=== PATIENT | female | born 1995 | race Caucasian/White ===

== ENCOUNTER 2020-01-14 06:10 | Day surgery (SDC) | payer BC ==
[2020-01-13 08:36] VITALS: BMI 43.2
[2020-01-14] MEDS ORDERED: IBUPROFEN 600 MG TABLET (FP) PO PRN (07:07)
--- NOTE | 2020-01-14 07:07 | HP ---
History & Physical Update - History History: No Change - Physical Physical: No Change - Assessment Assessment: No Change - Plan Plan: No Change (No change in HP)
[2020-01-14] MEDS ORDERED: LACTATED RINGERS SOLUTION 1,000 ML IV SCH (07:15)
[2020-01-14] MEDS ORDERED: ROCURONIUM BROMIDE 50 MG/5 ML SYRINGE ONE ×2 (07:33→08:33)
[2020-01-14] MEDS ORDERED: PROPOFOL 20 ML ONE ×2 (07:33→07:37)
[2020-01-14] MEDS ORDERED: MIDAZOLAM HCL 2 MG/2 ML SINGLE DOSE VIAL ONE (07:33)
[2020-01-14] MEDS ORDERED: LIDOCAINE HCL/PF 2% SDV 5ML VIAL ONE (07:33)
[2020-01-14] MEDS ORDERED: DEXAMETHASONE SOD PHOSPHATE 4 MG/1 ML VIAL ONE (08:19)
[2020-01-14] MEDS ORDERED: NEOSTIGMINE METHYLSULFATE 0.5 MG/ML - 10 ML MDV ONE (08:59)
[2020-01-14] MEDS ORDERED: GLYCOPYRROLATE 0.2 MG/1 ML VIAL ONE (08:59)
[2020-01-14] MEDS ORDERED: BUPIVACAINE HCL 0.5% 250 MG/50 ML VIAL IV ONE (09:15)
--- NOTE | 2020-01-14 09:35 | OP ---
Operative Note - Note: Operative Date: 01/14/20 Pre-Operative Diagnosis: right ovarian cyst Operation: laparoscopic right ovarin cystectomy, left paraovarian cyst aspiration and partial cystectomy Surgeon: Mitzy Flynn Equipment Maint Tech: Kaylen Lynne Anesthesiologist/MATCHER LEATHER PARTS: Perlita Anand Anesthesia: General Specimens Removed: right and left ovarian cyst and left ovarian cystic fluid Estimated Blood Loss (mls): 20 Drains, Volume Out (mls): 300 (garcia) Fluid Volume Replaced (mls): 1,300
[2020-01-14] MEDS ORDERED: IBUPROFEN 800 MG/8 ML IJ IVPB PRN (09:39)
[2020-01-14] MEDS ORDERED: oxyCODONE HCL 5 MG TABLET PO PRN (09:39)
[2020-01-14 12:59] VITALS: BP 124/79; PULSE 103; TEMP 98.5
--- NOTE | 2020-01-14 13:29 | SURG ---
Surgery Central Office Operator Note Central Office Operator: Kaylen Lynne PA-C Date of Service: 01/14/20 Diagnosis: right ovarian cyst Procedure: laparoscopic right ovarin cystectomy, left paraovarian cyst aspiration and partial cystectomy I was present for the entirety of the operative procedure. For further detail, please refer to operative report. Visit type - Case Type Case Type: Scheduled - Emergency Emergency Visit: No - New patient This patient is new to me today: Yes Date on this admission: 01/14/20
--- NOTE | 2020-01-14 17:15 | OP ---
DATE OF OPERATION: 01/14/2020 PREOPERATIVE DIAGNOSIS: Ovarian cyst, pelvic pain. OPERATION: Laparoscopic paraovarian right cystectomy and left ovarian cystectomy. POSTOPERATIVE DIAGNOSIS: Right paraovarian cyst and left ovarian cyst. SURGEON: David Pete MD. CITY MANAGER: EVE Adams. ANESTHESIA: General. ANESTHESIOLOGIST: Perlita Anand MD. ESTIMATED BLOOD LOSS: 20 mL. PROCEDURE: Patient was taken to the operating room, placed in supine position. Prepped and draped in usual sterile fashion. A timeout was performed in accordance with the hospital regulation. Gonzales catheter was inserted into the bladder. Attention was then drawn to the umbilicus, where a 5-mm umbilical incision was made. Veress needle was inserted into the cavity. Approximately 3-4 L CO2 was insufflated. Veress needle was then removed, and a 5-mm trocar was then inserted. Laparoscopic camera attached. Visualization revealed a large 6-cm right paraovarian cyst located underneath the fallopian tube and also a left pelvic 3-cm left ovarian cyst on the left ovary. Tubes were noted to be normal, and uterus was normal. The 2nd trocar on the left was placed in the lower abdomen after incision was made. Trocar was inserted under direct visualization. A 3rd trocar was placed on the right side in the lower abdomen after scalpel had been using. Trocar was inserted under direct visualization. The tube paraovarian cyst on the right was grasped and the serosa was then entered, and a paraovarian cystectomy was performed. The wall of the cyst was then removed. Cautery and cutting of the cyst was done. Hemostasis achieved using coagulation. Attention was then drawn to the left ovary, where a 3-cm ovarian cyst was noted. The needle was then used to puncture the cyst and cystic fluid removed was then submitted to cytology. The serosa was then entered, and an ovarian cystectomy was then done using blunt technique. The cyst wall was grasped and removed and submitted to pathology. Cauterization of the ovary was then done. Hemostasis was achieved. After irrigation and suction was done, hemostasis was achieved. The instruments were then removed. CO2 was then removed from the abdomen. Incisions were then closed using 3-0 Vicryl suture. Wound washed and dressed. Patient tolerated procedure well. Estimated blood loss was 20 mL. DAVID PETE M.D. [id number] [place]
--- NOTE | 2020-01-15 18:07 | PATH ---
Cytology Non-Gynecological Report Patient Name: MADHAVI ASCENCIO [facility]. Rec. #: [id number] /Age/Gender: 1995 (Age: 24) / F Account: [id number] Location: [facility] SURGICAL Taken: 01/14/2020 Received: 01/14/2020 Reported: 01/15/2020 Physicians: Mitzy Flynn M.D. Specimen(s) Received LEFT OVARIAN CYSTIC FLUID Clinical History Left ovarian cyst Final Diagnosis LEFT OVARIAN CYSTIC FLUID FOR CYTOLOGY: SATISFACTORY FOR EVALUATION. NEGATIVE FOR MALIGNANCY. BENIGN CYSTIC CONTENTS. SEE CONCURRENT PATHOLOGY REPORT [id number]. Electronically Signed Dorcas Pisano M.D. Gross Description Approximately 5cc of bloody fluid received fresh. One cytospin and one cellblock prepared.
--- NOTE | 2020-01-15 18:35 | PATH ---
Surgical Pathology Report Patient Name: MADHAVI ASCENCIO [facility]. Rec. #: [id number] /Age/Gender: 1995 (Age: 24) / F Account: [id number] Location: [facility] SURGICAL Taken: 01/14/2020 Received: 01/14/2020 Reported: 01/15/2020 Physicians: Mitzy Flynn M.D. Specimen(s) Received A: RIGHT PARA OVARIAN CYST B: LEFT OVARIAN CYST Clinical History Right ovarian cyst Final Diagnosis A. RIGHT PARAOVARIAN CYST, EXCISION: CONSISTENT WITH PARAOVARIAN CYST. B. LEFT OVARIAN CYST, EXCISION: HEMORRHAGIC FOLLICULAR CYST. Electronically Signed Dorcas Pisano M.D. Gross Description A. Received in formalin labeled "right paraovarian cyst," is a 2.8 x 1.5 x 0.1 cm riojas-pink portion of soft tissue, consistent with a portion of cyst wall. The specimen is serially sectioned and entirely submitted in 2 cassettes. B. Received in formalin labeled "left ovarian cyst," is a 0.6 x 0.4 x 0.2 cm aggregate of riojas red soft tissue fragments. The specimen is submitted in toto in one cassette. DL/01/14/2020 saudi/01/14/2020
== END 2020-01-14 12:25 | disposition home or self-care (01) ==
LOC: JASU-SURG 06:10
PROVIDERS: ATTEND Obstetrics & Gynecology
PROC: 0UB24ZZ Excision of Bilateral Ovaries, Percutaneous Endoscopic Approach (ICD-10-PCS; principal; 2020-01-14 07:30)
DX: N83.291 Other ovarian cyst, right side (principal); N83.292 Other ovarian cyst, left side; E66.01 Morbid (severe) obesity due to excess calories
CPT/HCPCS: 88108; 88305-TC; 94760